=== PATIENT | male | born 1940 | race Caucasian/White ===

== ENCOUNTER 2024-10-08 09:36 | Outpatient (CLI) | payer MEDICARE, SELFPAY ==
--- NOTE | 2024-10-08 09:49 | ECHO_ITS ---
Patient Info Name: Madi Velasquez Age: 84 years : 1940 Gender: Male Ht: 70 in Wt: 170 lbs BSA: 1.96 m2 HR: 115 bpm BP: 130 / 96 mmHg Heart Rhythm: Atrial Fibrillation Technical Quality: Good Exam Date: 10/08/2024 10:00 AM Exam Location: Echo Lab Patient Status: Outpatient Admit Date: 10/08/2024 Staff Ordering Physician: Kevin Arizmendi APRN Recycling Attendant: Leisa Montero RDCS Attending Provider: Kevin Arizmendi APRN Referring Physician: Ugo LINO; Exam Type: CA echo doppler color flow Study Info Indications I48.92 - Unspecified atrial flutter Complete two-dimensional, color flow and Doppler transthoracic echocardiogram is performed. Summary 1. Complete two-dimensional, color flow and Doppler transthoracic echocardiogram is performed. 2. Left ventricular chamber dimension is moderately enlarged. 3. Left ventricular systolic function is moderately globally reduced, estimated at 35-40%. 4. The left ventricular diastolic function is normal. 5. E/e' 9 is minimally elevated. 6. Atrial fibrillation. 7. Right ventricular chamber dimension is mildly enlarged. 8. Right ventricular systolic function is mildly reduced and with abnormal TAPSE 1.2 cm. 9. Left atrial chamber dimension is moderately enlarged. 10. Right atrial chamber dimension is moderately enlarged. 11. The mitral valve has mildly calcified annulus. 12. There is mild to moderate mitral valve regurgitation. 13. There is mild to moderate tricuspid valve regurgitation. 14. Mild pulmonary hypertension, estimated pulmonary arterial systolic pressure is 44 mmHg. 15. There is trace pulmonic regurgitation. Left Ventricle E/e' 9 is minimally elevated. Atrial fibrillation. Left ventricular chamber dimension is moderately enlarged. Left ventricular systolic function is moderately globally reduced, estimated at 35-40%. The left ventricular diastolic function is normal. Right Ventricle Right ventricular systolic function is mildly reduced and with abnormal TAPSE 1.2 cm. Right ventricular chamber dimension is mildly enlarged. Left Atria Left atrial chamber dimension is moderately enlarged. Right Atria Right atrial chamber dimension is moderately enlarged. Aortic Valve The aortic valve is trileaflet. There is no aortic valve stenosis. There is no aortic valve regurgitation. Pulmonic Valve There is trace pulmonic regurgitation. Mitral Valve The mitral valve has mildly calcified annulus. There is no mitral valve stenosis. There is mild to moderate mitral valve regurgitation. Tricuspid Valve There is mild to moderate tricuspid valve regurgitation. Mild pulmonary hypertension, estimated pulmonary arterial systolic pressure is 44 mmHg. Pericardium/Pleural There is no pericardial effusion. Inferior Vena Cava Normal inferior vena cava with >50% collapse upon inspiration consistent with normal right atrial pressure, 5 mmHg. Aorta The aortic root size at the sinus of Valsalva is normal. Left Ventricular Outflow Tract Name Value Normal LVOT 2D LVOT Diameter 1.9 cm LVOT Doppler LVOT Peak Gradient 1 mmHg LVOT Mean Gradient 1 mmHg LVOT VTI 10 cm LVOT VTI/AV VTI Ratio 0.7 LVOT Stroke Volume 27 ml LVOT CO 6.2 l/min LVOT CI 3.2 l/min/m2 Pulmonic Valve Name Value Normal PV Doppler PV Peak Gradient 3 mmHg Mitral Valve Name Value Normal MV Doppler MV Decel [place] 798 cm/s2 MV PHT 29 ms MV Area (PHT) 7.7 cm2 4.0-5.0 MV Diastolic Function MV E Peak Velocity 79 cm/s MV A Peak Velocity 6 cm/s MV E/A 13.7 MV Decel Time 99 ms MV Annular TDI MV E/e' (Septal) 8.9 <=8.0 MV E/e' (Lateral) 9.4 <=8.0 MV E/e' (Average) 9.1 Tricuspid Valve Name Value Normal TV Regurgitation Doppler TR Peak Velocity 314 cm/s TR Peak Gradient 39 mmHg Estimated PAP/RSVP RA Pressure 5 mmHg <=5 PA Systolic Pressure 44 mmHg <36 RV Systolic Pressure 44 mmHg <36 Aorta Name Value Normal Ascending Aorta Ao Root Diameter (MM) 3.1 cm Ao Root Diam Index (MM) 1.6 cm/m2 Aortic Valve Name Value Normal AV Doppler AV Peak Velocity 84 cm/s AV Peak Gradient 3 mmHg AV Mean Gradient 2 mmHg AV VTI 15 cm AV Area (Cont Eq VTI) 1.8 cm2 >=3.0 AV Area (Cont Eq Ricco) 1.6 cm2 AV Regurgitation 2D LVOT Area 2.7 cm2 Ventricles Name Value Normal LV Dimensions 2D/MM IVS Diastolic Thickness (2D) 1.1 cm 0.6-1.0 LVID Diastole (2D) 4.7 cm 4.2-5.8 LVIW Diastolic Thickness (2D) 0.8 cm 0.6-1.0 LVID Systole (2D) 3.6 cm 2.5-4.0 LVOT Diameter 1.9 cm LV Mass (2D Cubed) 146.72 g 88.00-224.00 LV Mass Index (2D Cubed) 75 g/m2 49-115 Relative Wall Thickness (2D) 0.33 LV Fractional Shortening/Ejection Fraction 2D/MM LV Fractional Shortening (2D) 24 % 25-43 LV EF (2D Teicholz) 48 % 52-72 LV Diastolic Volume (4C MOD) 60 ml LV EF (4C MOD) 42 % LV Diastolic Volume (2C MOD) 70 ml LV EF (2C MOD) 40 % LV Diastolic Volume (BP MOD) 66 ml 62-150 LV Diastolic Volume Index (BP MOD) 34 ml/m2 34-74 LV Systolic Volume (BP MOD) 41 ml 21-61 LV Systolic Volume Index (BP MOD) 21 ml/m2 11-31 LV EF (BP MOD) 38 % 52-72 LV Diastolic Length (4C) 6.9 cm LV Systolic Length (4C) 5.6 cm LV Stroke Volume (4C MOD) 25 ml RV Dimensions 2D/MM RVID Diastole (2D) 4.2 cm 2.5-3.5 Atria Name Value Normal LA Dimensions LA Dimension (MM) 4.8 cm 3.0-4.1 LA Volume (4C A-L) 110 ml LA Volume (BP A-L) 96 ml RA Dimensions RA Area (4C) 18.3 cm2 <=18.0 Report Signatures
--- NOTE | 2024-10-08 10:05 | ECG_ITS ---
Test Date: 2024-10-08 10:27:55 Measurements Intervals [place] Rate: 112 P: 0 CO: 0 QRS: 0 QRSD: 97 T: 60 QT: 295 QTc: 404 Interpretive Statements ATRIAL FIBRILLATION WITH RAPID VENTRICULAR RESPONSE WITH ABERRANT CONDUCTION OR VENTRICULAR PREMATURE COMPLEXES No previous ECG available for comparison Electronically Signed On 10-08-2024 16:42:38 CDT by Danielle Rodriguez M.D.
== END 2024-10-08 09:37 | disposition home or self-care (01) ==
LOC: ANHLAB 09:37 → ANHCARD 09:40
PROVIDERS: PCP Nurse Practitioner; Visit Provider Nurse Practitioner
DX: I48.91 Unspecified atrial fibrillation (principal); I08.3 Combined rheumatic disorders of mitral, aortic and tricuspid valves
CPT/HCPCS: 93005; 93306

== ENCOUNTER 2025-02-18 10:32 | Outpatient (CLI) | payer MEDICARE, SELFPAY ==
[2025-02-18 11:18] LABS: Alanine Aminotransferase 20 U/L (6-50); Albumin Level 4.3 g/dL (3.5-5.1); Alkaline Phosphatase 42 U/L (38-126); Anion Gap 8 mmol/L (4-12); Aspartate Amino Transferase 26 U/L (17-59); Bilirubin,Total 0.8 mg/dL (0.2-1.3); Blood Urea Nitrogen 11 mg/dL (9-20); Calcium 9.6 mg/dL (8.4-10.2); Carbon Dioxide 26 mmol/L (22-30); Chloride 98 mmol/L (98-107); Estimated Glomerular Filt Rate > 60; Glucose 172 mg/dL (65-110); Magnesium 1.5 mg/dL (1.6-2.3); Potassium 5.1 mmol/L (3.4-5.0); Sodium 132 mmol/L (137-145); Total Protein 7.5 g/dL (6.3-8.2)
[2025-02-18 11:35] LABS: Free T4 Free Thyroxine 1.32 ng/dL (0.78-2.19)
[2025-02-18 11:54] LABS: Thyroid Stimulating Hormone 3.340 uIU/mL (0.465-4.680)
== END 2025-02-18 10:33 | disposition home or self-care (01) ==
PROVIDERS: PCP Nurse Practitioner; Visit Provider Internal Medicine Cardiovascular Disease
DX: I48.0 Paroxysmal atrial fibrillation (principal)
CPT/HCPCS: 36415; 80053; 83735; 84439; 84443

== ENCOUNTER 2025-03-19 01:51 | Day surgery (SDC) | payer MEDICARE, SELFPAY ==
[2025-03-18 10:27] VITALS: BMI 25.1
[2025-03-19] VITALS (18 sets, daily range): BP systolic 132–181; BP diastolic 58–99; PULSE 71–94; RESP 12–19; TEMP 36.3; O2SAT 95–100; BMI 23.8
[2025-03-19 09:18] LABS: Anion Gap 7 mmol/L (4-12); Blood Urea Nitrogen 14 mg/dL (9-20); Calcium 9.1 mg/dL (8.4-10.2); Carbon Dioxide 26 mmol/L (22-30); Chloride 97 mmol/L (98-107); Estimated CRCL calculation 50 ml/min; Estimated Glomerular Filt Rate > 60; Glucose 166 mg/dL (65-110); Magnesium 1.6 mg/dL (1.6-2.3); Potassium 4.0 mmol/L (3.4-5.0); Sodium 130 mmol/L (137-145)
--- NOTE | 2025-03-19 10:00 | ECG_ITS ---
Test Date: 2025-03-19 10:59:42 Measurements Intervals [place] Rate: 90 P: 0 PA: 0 QRS: 56 QRSD: 115 T: -15 QT: 372 QTc: 456 Interpretive Statements ATRIAL FIBRILLATION MODERATE INTRAVENTRICULAR CONDUCTION DELAY [110+ ms QRS DURATION] NONSPECIFIC ST AND T-WAVE ABNORMALITY ABNORMAL QRS-T ANGLE [QRS-T AXIS DIFFERENCE > 60] ABNORMAL ECG Compared to ECG 10/08/2024 10:27:55 Intraventricular conduction delay now present ST (T wave) deviation now present Ventricular premature complex(es) no longer present Aberrant conduction of supraventricular beat(s) no longer present Electronically Signed On 03-19-2025 11:22:32 CDT by Ryland Bower M.D.
--- NOTE | 2025-03-19 10:30 | P.HP_ITS ---
H&P: HPI History of Present Illness Date/Time: 03/19/25 10:30 Chief Complaint: Atrial fibrillation Narrative: 84-year-old with atrial fibrillation Review of Systems Review of Systems: All systems reviewed & are unremarkable except as noted in HPI and below Constitutional: Constitutional: Denies body ache(s) ENT: Denies Normal hearing present Cardiovascular: Cardiovascular: Denies chest pain Respiratory: Respiratory: Denies hemoptysis [facility] Past Medical History Medical History BMI 26.0-26.9,adult Elevated PSA High cholesterol Surgical History Surgical History H/O vasectomy Hx of cataract surgery Family History Family History Mother Family history of malignant neoplasm Father Family history of emphysema Sibling Diabetes mellitus Other Family history of arthritis Social History Social History Smoking status: Never smoker Tobacco type: cigarettes Second hand tobacco smoke exposure: No Alcohol intake: never Substance use: never Substance use type: does not use Do You Feel Safe in your Home?: Yes Lack of Transportation: No Lack of Food: Never True Current Housing: I Have Housing Concerned About Future Housing: No Difficulty Paying Gas/Electric Bills: No Difficulty Paying for Meds: No Currently Unemployed: No Education: Associate Degree Difficulty w/ Childcare or Family Care: No Living arrangements: alone Occupation/Education: retired Additional occupation/education comments: [employer] Gender identity (if verbalized by the patient): Male Meds Home Medications and Allergies Home Medications ?Medication ?Instructions ?Recorded ?Confirmed ?Type blood sugar diagnostic #10 ea 01/28/20 09/19/24 His tory lancets #50 ea 01/28/20 09/19/24 His tory pioglitazone 45 mg tablet 45 mg PO DAILY #90 tabs 12/08/0903/18/25 Rx metformin 1,000 mg tablet 1,000 mg PO BID #180 tabs 03/18/25 Rx apixaban 2.5 mg tablet (Eliquis) 2.5 mg Tablet#56 Samp les 09/19/24 03/18/25 Sample carvedilol 6.25 mg tablet (Coreg) 12.5 mg (2 x 6.25 mg ) PO Q12H #180 11/11/24 03/18/25 Rx tabs pravastatin 10 mg tablet 10 mg PO DAILY #90 tabs 08/02/0703/18/25 Rx apixaban 2.5 mg tablet (Eliquis) 5 mg PO BID 03/18/25 03/18/25 History lisinopril 30 mg tablet 30 mg PO BID 03/18/25 History magnesium oxide 400 mg (241.3 mg 400 mg PO BID 5 03/18/25 History magnesium) tablet Allergies Allergy/AdvReac Type Severity Reaction Status Date / Time No Known Allergies Allergy Verified 03/19/25 08:37 Vital Signs Vital Signs - 24 hr 03/19/25 08:38 Temperature 36.3 C L Pulse Rate 94 Respiratory Rate 13 Blood Pressure 179/87 H Pulse Oximetry 97 Oxygen Delivery Room Air Exam Narrative: Appears stated age Const: General: comfortable and no acute distress HENMT: Face/Nose/Sinus: Normal nares present Eyes: Sclera: sclerae normal Neck: Neck: supple and no JVD Resp: Auscultation: clear to auscultation bilaterally Cardio: Rate: regular rate Rhythm: abnormal rhythm irregularly irregular Skin: General skin exam: normal color Neuro: Speech: normal speech Extrem: General: normal to inspection Psych: Mental Status: mental status grossly normal H&P: Results Labs Labs: [facility] 03/19/25 08:41 Sodium 130 L Potassium 4.0 Chloride 97 L Carbon Dioxide 26 BUN 14 Creatinine 0.94 Glucose 166 H Calcium 9.1 Assessment and Plan Assessment and plan (1) Atrial fibrillation: Code(s): I48.91 - Unspecified atrial fibrillation Status: Acute Assessment and Plan: Continue anticoagulation. Plan for cardioversion.
--- NOTE | 2025-03-19 10:32 | WPDMODSED ---
Moderate Sedation Note-Pt Data Patient Data Diagnosis: Atrial fibrillation Present Complaint: atrial fibrillation Procedure to be performed/Plan: 1. Moderate sedation 2. Electrical cardioversion Allergies Allergy/AdvReac Type Severity Reaction Status Date / Time No Known Allergies Allergy Verified 03/19/25 08:37 Home Medications ?Medication ?Instructions ?Recorded ?Confirmed ?Type blood sugar diagnostic #10 ea 01/28/20 09/19/24 History lancets #50 ea 01/28/20 09/19/24 History pioglitazone 45 mg tablet 45 mg PO DAILY #90 tabs 07/16/24 03/18/25 Rx metformin 1,000 mg tablet 1,000 mg PO BID #180 tabs 09/13/24 03/18/25 Rx apixaban 2.5 mg tablet (Eliquis) 2.5 mg Tablet#56 Samples 09/19/24 03/18/25 Sample carvedilol 6.25 mg tablet (Coreg) 12.5 mg (2 x 6.25 mg) PO Q12H #180 11/11/24 03/18/25 Rx tabs pravastatin 10 mg tablet 10 mg PO DAILY #90 tabs 02/20/25 03/18/25 Rx apixaban 2.5 mg tablet (Eliquis) 5 mg PO BID 03/18/25 03/18/25 History lisinopril 30 mg tablet 30 mg PO BID 03/18/25 03/18/25 History magnesium oxide 400 mg (241.3 mg 400 mg PO BID 03/18/25 03/18/25 History magnesium) tablet Current Medications: Active Medications Sodium Chloride (Normal Saline Iv) 1,000 mls @ 30 mls/hr IV CONT .Q24H DENISE Magnesium Sulfate/Dextrose (Magnesium Sulfate 3gm/[id number]) 3 gm in 100 mls @ 33.333 mls/hr IVPB ONCE ONE Stop: 03/19/25 13:29 Sedation/Anesthesia: No previous sedation/anesthesia problems (including family history). [facility] Past Medical History Medical History BMI 26.0-26.9,adult Elevated PSA High cholesterol Surgical History Surgical History H/O vasectomy Hx of cataract surgery Family History Family History Mother Family history of malignant neoplasm Father Family history of emphysema Sibling Diabetes mellitus Other Family history of arthritis Social History Social History Smoking status: Never smoker Tobacco type: cigarettes Second hand tobacco smoke exposure: No Alcohol intake: never Substance use: never Substance use type: does not use Do You Feel Safe in your Home?: Yes Lack of Transportation: No Lack of Food: Never True Current Housing: I Have Housing Concerned About Future Housing: No Difficulty Paying Gas/Electric Bills: No Difficulty Paying for Meds: No Currently Unemployed: No Education: Associate Degree Difficulty w/ Childcare or Family Care: No Living arrangements: alone Occupation/Education: retired Additional occupation/education comments: [employer] Gender identity (if verbalized by the patient): Male Mod Sed Physical Exam Physical Exam Pre Procedural Exam: Normal: Appearance, Eyes, Throat, Airway, Lungs, Heart Size, Heart Rate, Neuro Exam and Skin and Variation: Heart Rhythm (Irregular irregular) Hours since solid foods: 12 Hours since liquid intake: 12 Mallampati Classification: class II Internal Medicine - PN: Obj Da Vital Signs Vital Signs: Vital Signs - 24 hr 03/19/25 08:38 Temperature 36.3 C L Pulse Rate 94 Respiratory Rate 13 Blood Pressure 179/87 H Pulse Oximetry 97 Oxygen Delivery Room Air Meds/Results Medications: Active Medications Generic Name Dose Route Start Last Admin Trade Name Freq PRN Reason Stop Dose Admin Sodium Chloride 1,000 mls @ 30 mls/hr 03/19/25 08:30 Normal Saline Iv IV CONT .Q24H DENISE Magnesium Sulfate/Dextrose 3 gm in 100 mls @ 33.333 mls/hr 03/19/25 10:30 Magnesium Sulfate 3gm/[id number] IVPB 03/19/25 13:29 ONCE ONE Labs 03/19/25 08:41 Labs: Laboratory Results - last 24 hr 03/19/25 08:41 Sodium 130 L Potassium 4.0 Chloride 97 L Carbon Dioxide 26 Anion Gap 7 BUN 14 Creatinine 0.94 Estim Creat Clear Calc 50 Estimated GFR > 60 Glucose 166 H Calcium 9.1 Magnesium 1.6 ASA Classification/Sedation ASA Classification/Sedation ASA Class: II Emergent: No Risks: Risks, benefits and alternatives explained and patient/family accepted plan for sedation. Patient re-evaluated immediately prior to sedation.
[2025-03-19] MEDS: MIDAZOLAM HCL (*CRX) 2 MG/2 ML VIAL IV PUSH (10:34)
[2025-03-19] MEDS: fentaNYL CITRATE INJ (*CRX) 100 MCG/2 ML VIAL 25 MCG IV PUSH ×2 (10:34→10:39)
[2025-03-19] MEDS: MIDAZOLAM HCL (*CRX) 2 MG/2 ML VIAL 1 MG IV PUSH (10:42)
--- NOTE | 2025-03-19 10:56 | P.PCNCVR_ITS ---
Cardioversion Cardioversion Date of procedure: 03/19/25 Procedure: 1. Electrical cardioversion 2. Moderate sedation Pre-op diagnosis: Atrial fibrillation Post-op diagnosis: Same Indications: Atrial fibrillation Description of procedure: After discussing the risks, benefits alternatives of the procedure patient was given via verbal and written informed consent. Risks discussed included skin irritation or burn, shocking to more problematic heart rhythm, , adverse reaction to anesthesia, stroke. After establishing continuous court recording monitor, pulse oxygenation and serial blood pressure assessments, time-out was taken the procedure was started. Procedure start time: 10:34 a.m. Procedure stop time 10:50 a.m. Complications: None Blood loss: None Sedation: A total of 3 mg of Versed and 50 mcg of fentanyl given in divided dosages. Patient was monitored and medications were administered by Betty King RN Findings: Attempted cardioversion x2. One hundred fifty joules of synchronized biphasic energy was utilized x1 at 10:46 a.m. with only very brief success. Two hundred joules was then used at 10:50 a.m. without success. No further attempts were made. Conclusion: 1. Unsuccessful elective electrical cardioversion using 150 joules as well as 200 joules of biphasic energy 2. Moderate sedation 3. Pursue rate control strategy including chronic anticoagulation. Magnesium level is also low today and 3 g of IV magnesium will be given before discharge.
[2025-03-19] MEDS: MAGNESIUM SULFATE 3GM/D5W100ML 3 GM/100 ML BAG IVPB (11:04)
== END 2025-03-19 14:15 | disposition home or self-care (01) ==
PROVIDERS: PCP Nurse Practitioner; Visit Provider Internal Medicine Cardiovascular Disease
PROC: 5A2204Z Restoration of Cardiac Rhythm, Single (ICD-10-PCS; principal; 2025-03-19 10:00)
DX: I48.91 Unspecified atrial fibrillation (principal)
CPT/HCPCS: 36415; 80048; 83735; 92960; J2250; J3010; J3475; J7040